=== PATIENT | male | born 1935 | race Caucasian/White ===

== ENCOUNTER 2018-01-07 06:22 | Inpatient (IN) | END 2018-01-09 16:00 | disposition home health service (06) | DRG 475 ==

== ENCOUNTER 2018-04-15 21:15 | Emergency (ER) | END 2018-04-15 23:48 | disposition home or self-care (01) ==

== ENCOUNTER 2018-04-18 17:57 | Emergency (ER) | END 2018-04-18 19:39 | disposition short-term general hospital (02) ==